=== PATIENT | male | born 1985 | race Caucasian/White ===

== ENCOUNTER 2016-09-10 12:32 | Emergency (ER) | payer MEDICARE ==
[2016-09-10 13:12] LABS: BASO % 0.2 % (0.2-1.2); EOS # 0.3 10_X3_uL (0.0-0.5); EOS % 2.7 % (0.8-7.0); GRAN # 7.9 10_X3_uL (1.8-5.4); GRAN % 65.5 % (34.0-67.9); HEMATOCRIT 45.6 % (40-51); HEMOGLOBIN 15.2 g/dL (13.7-17.5); LYMPH # 2.9 10_X3_uL (1.3-3.6); LYMPH % 24.2 % (21.8-53.1); MEAN CORPUSCULAR HEMOGLOBIN 30.2 pg (27.0-33.0); MEAN CORPUSCULAR HGB CONC 33.3 g/dL (32.0-36.0); MEAN CORPUSCULAR VOLUME 90.5 fL (79-92); MEAN PLATELET VOLUME 10.7 fl (7.5-11.5); MONO # 0.9 10_X3_uL (0.3-0.8); MONO % 7.4 % (5.3-12.2); PLATELET COUNT 222 x10_3/uL (163-337); RED BLOOD COUNT 5.04 x10_6/uL (4.6-6.1); RED CELL DISTRIBUTION WIDTH 13.5 % (11.6-14.4); WHITE BLOOD COUNT 12.1 x10_3/uL (4.2-9.1)
[2016-09-10 13:37] LABS: ALKALINE PHOSPHATASE 119 U/L (50-136); ALT/SGPT 53 U/L (7.53-40.17); AST/SGOT 53 U/L (6.66-35.34); BILIRUBIN,TOTAL 0.31 mg/dL (0.0-1.0); BLOOD UREA NITROGEN 11 mg/dL (7-18); CALCIUM 9.3 mg/dL (8.7-10.7); CARBON DIOXIDE 26 mmol/L (21-32); CREATININE 0.6 mg/dL (0.6-1.3); GLUCOSE,RANDOM 89 mg/dL (70-99); POTASSIUM 4.4 mmol/L (3.5-5.1); SODIUM 140 mmol/L (136-145); TOTAL PROTEIN 7.6 gm/dL (6.4-8.2)
[2016-09-10 14:13] LABS: DDIMER 6.3 mgFEU/L (0.19-0.50); PARTIAL THROMBOPLASTIN TIME 26.5 SECONDS (21.8-28.4); PROTHROMBIN TIME (PATIENT) 10.6 SECONDS (9.6-10.8)
== END 2016-09-10 17:40 ==
LOC: ER 12:32
PROVIDERS: Emergency Medicine
DX: I82.4Z2 Acute embolism and thrombosis of unspecified deep veins of left distal lower extremity (principal); J90 Pleural effusion, not elsewhere classified; J98.11 Atelectasis
CPT/HCPCS: 36415; 71260; 80053; 85025; 85379; 85610; 85730; 93005; 93971; 96365; 96366; 99070; 99285-25; J7040; Q9967